=== PATIENT | female | born 1980 | race Hispanic/Latino ===

== ENCOUNTER 2018-08-31 18:47 | Emergency (ER) | payer OTHER ==
[~2018-08-31] VITALS: Ht 157.5 cm; Wt 79.5 kg
[~2018-08-31 18:47] MED LIST: AMOXICILLIN500 MG OR; AMOXIL500 MG OR; AMPICILLIN500 MG PO; CEPH500C57 OR; CLARITHROMYC500 M2 PO; CLARITIN10 MG OR; DENIES CURRENT MEDS; DONNATA2 PO; EQ OMEPRAZOLE20 MG PO; FLEXERIL OR; FOLIC ACID1 MG OR; MACRODANTIN100 MG OR; NITROFURANTN100 MG OR; NO HOME MEDS; NO MEDS; PERCOCET1 TA2 OR; PRE NATAL VIT; PRENATA4 OR; TYLENOL500 MG OR; ULTRAM50 M1 PO; ULTRAM50 MG OR
[2018-08-31 19:23] LABS: HEMATOCRIT 38.3 % (37.0-47.0); HEMOGLOBIN 13.1 g/dl (12.0-16.0); IMMATURE GRANULOCYTES 0.3 % (0.0-5.0); MEAN CELL VOLUME 89.5 fL CALC (80.0-100.0); MEAN CORPUSCULAR HGB 30.6 pG CALC (26.0-32.0); MEAN CORPUSCULAR HGB CONC 34.2 g/L CALC (32.0-36.0); NEUT# 6.76 thou/uL (2.00-7.15); RED BLOOD COUNT 4.28 mill/uL (4.20-5.60); RED CELL DISTRI WIDTH 13.5 % (11.5-15.5)
[2018-08-31 19:45] LABS: ALBUMIN 4.4 g/dL (3.2-5.0); ALKALINE PHOSPHATASE 48 u/l (38-126); ANION GAP 14 (6-22 (CALC)); BILIRUBIN, TOTAL 0.3 mg/dL (0.0-1.4); BUN 10 mg/dL (7-17); BUN/CREATININE RATIO 18 (12-20 (CALC)); CARBON DIOXIDE 27 mmol/l (22-30); CHLORIDE 103 mmol/l (95-108); CPK 54 u/l (30-165); CREATININE 0.6 mg/dL (0.5-1.0); GFR > 60 ML/MIN (>=60 (CALC)); GFR FOR AFR.AMER. > 60 ML/MIN (>=60 (CALC)); LIPASE 95 u/l (23-300); POTASSIUM 3.7 mmol/l (3.5-5.1); SGOT/AST 24 u/l (14-36); SODIUM 140 mmol/l (137-146); TOTAL PROTEIN 7.8 g/dL (6.3-8.2)
[2018-08-31 20:13] LABS: URINE BILIRUBIN - DIPSTICK NEGATIVE (NEGATIVE); URINE BLOOD DIPSTICK MODERATE (NEGATIVE); URINE COLOR YELLOW; URINE GLUCOSE - DIPSTICK NEGATIVE (NEGATIVE); URINE KETONE NEGATIVE (NEGATIVE); URINE NITRITE - DIPSTICK NEGATIVE (Negative); URINE PROTEIN - DIPSTICK NEGATIVE (NEG-TRACE); URINE SPECIFIC GRAVITY 1.025; URINE UROBILINOGEN - DIPSTICK 0.2 E.U./dL (0.2)
[2018-08-31 20:16] LABS: URINE CLARITY SL CLOUDY; URINE LEUK ESTERASE MODERATE (NEGATIVE)
[2018-08-31 20:20] LABS: URINE BACTERIA FEW hpf; URINE SQUAMOUS EPITHELIAL CELL MODERATE EPI/hpf (0-FEW)
[2018-08-31] MEDS ORDERED: ULTRAM50 M1 PO (21:22)
[2018-08-31] MEDS ORDERED: CIPROFLOXACN500 MG PO (21:22)
[2018-08-31 21:55] VITALS: BP 120/78
== END 2018-08-31 21:55 | disposition home or self-care (01) | DRG 552 ==
LOC: ED 18:47
PROVIDERS: Family Medicine
DX: S16.1XXA Strain of muscle, fascia and tendon at neck level, initial encounter (principal); S39.012A Strain of muscle, fascia and tendon of lower back, initial encounter; S29.012A Strain of muscle and tendon of back wall of thorax, initial encounter; R10.13 Epigastric pain; F17.210 Nicotine dependence, cigarettes, uncomplicated; V49.40XA Driver injured in collision with unspecified motor vehicles in traffic accident, initial encounter
CPT/HCPCS: Q9967

== ENCOUNTER 2019-07-21 21:46 | Observation (INO) | payer SELFPAY ==
[~2019-07-21] VITALS: Ht 157.5 cm; Wt 78.9 kg
[~2019-07-21 21:46] MED LIST changes: +CIPROFLOXACN500 MG PO
--- NOTE | 2019-07-21 21:53 | NUR ---
BY WC TO ROOM VERY MINIMAL EFFORT TO ASSIST TO BED
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
--- NOTE | 2019-07-21 22:03 | NUR ---
PT TO CT VIA STRETCHER. PT CRYING/LYING STILL/HYSTERICAL RESPIRATIONS/RR 32. PT RESPONDING TO QUESTIONS. MINIMAL MOVEMENT. C/O HEAD AND NECK PAIN X 4 DAYS. PASSED OUT AT HOME. ENCOURAGED TO SLOW HER BREATHING.
--- NOTE | 2019-07-21 22:17 | NUR ---
TOWEL OVER HEAD TO COMFORT PT FROM LIGHT. IV STARTED AFTER CT OF HEAD COMPLETED WHILE WAITING. LABS DRAWN. I-STAT COMPLETED. CREATININE 0.7.
--- NOTE | 2019-07-21 22:20 | NUR ---
NIHSS COMPLETED. C/O WEAKNESS AND TINGLING IN ARMS AND LEGS. BILAT LEGS DRIFTING. PT CONTINUES TO SOB AND WILL NOT ATTEMPT TO SLOW BREATHING. NRB VENTED MASK APPLIED TO ATTEMPT TO SLOW BREATHING. PORTABLE SAT ON FINGER. SAT AT 99%.
[2019-07-21 22:25] LABS: GFR > 60 ML/MIN (>=60 (CALC)); GFR FOR AFR.AMER. > 60 ML/MIN (>=60 (CALC))
[2019-07-21 22:26] LABS: HEMATOCRIT 39.4 % (37.0-47.0); HEMOGLOBIN 13.2 g/dl (12.0-16.0); IMMATURE GRANULOCYTES 0.3 % (0.0-5.0); MEAN CELL VOLUME 87.8 fL CALC (80.0-100.0); MEAN CORPUSCULAR HGB 29.4 pG CALC (26.0-32.0); MEAN CORPUSCULAR HGB CONC 33.5 g/L CALC (32.0-36.0); NEUT# 6.31 thou/uL (2.00-7.15); RED BLOOD COUNT 4.49 mill/uL (4.20-5.60); RED CELL DISTRI WIDTH 13.1 % (11.5-15.5)
[2019-07-21 22:44] LABS: ALKALINE PHOSPHATASE 55 u/l (38-126); ANION GAP 16 (6-22 (CALC)); BUN 14 mg/dL (7-17); BUN/CREATININE RATIO 20 (12-20 (CALC)); CARBON DIOXIDE 24 mmol/l (22-30); CHLORIDE 102 mmol/l (95-108); CREATININE 0.7 mg/dL (0.5-1.0); ETHYL ALCOHOL 0 mg/dl (0-30); GFR > 60 ML/MIN (>=60 (CALC)); GFR FOR AFR.AMER. > 60 ML/MIN (>=60 (CALC)); POTASSIUM 3.9 mmol/l (3.5-5.1); SGOT/AST 42 u/l (14-36); SODIUM 138 mmol/l (137-146); TOTAL PROTEIN 8.9 g/dL (6.3-8.2)
--- NOTE | 2019-07-21 22:45 | NUR ---
RETURNED TO ER. TELESTROKE NIHSS COMPLETED WITH NEURO. DOES NOT FEEL PT IS HAVING A STROKE. PT CONTINUES TO BREATHE AT A RATE OF 30-35.
[2019-07-21 22:47] LABS: ACT PARTIAL THROMBO TIME 26.9 SECONDS (20.0-32.5); INTERNATIONAL NORMALIZED RATIO 0.9 RATIO (0.7-1.3); PROTHROMBIN TIME 9.7 SECONDS (9.0-12.5)
--- NOTE | 2019-07-21 22:50 | NUR ---
TORADOL AND IVF UP.
[2019-07-21 22:56] LABS: BILIRUBIN, TOTAL 0.5 mg/dL (0.0-1.4)
--- NOTE | 2019-07-21 23:00 | NUR ---
ATTEMPTED TO CALM PT. ICE PACK TO NECK AND HEAD. HOB REMAINS ELEVATED. LIGHTS DIMMED AND BLANKET GIVEN. DOOR CLOSED. MONITORS CONTINUED.
--- NOTE | 2019-07-21 23:29 | NUR ---
NO RELIEF FROM TORADOL. BENADRYL AND REGLAN GIVEN.
--- NOTE | 2019-07-21 23:29 | NUR ---
CONTINUE WITH HYSTERICAL RESP. FAMILY AT BEDSIDE.
--- NOTE | 2019-07-21 23:46 | NUR ---
PT SLEEPING. VSS.
[2019-07-22] VITALS (9 sets, daily range): BP systolic 106–146; BP diastolic 68–96
--- NOTE | 2019-07-22 00:41 | NUR ---
EKG WAS COMPLETED AND PT UP TO BR WITH ASSIST. FEELS A LITTLE WOBBLY. ASSISTED BACK TO BED. URINE SENT.
[2019-07-22 00:58] LABS: URINE BILIRUBIN - DIPSTICK NEGATIVE (NEGATIVE); URINE BLOOD DIPSTICK SMALL (NEGATIVE); URINE COLOR YELLOW; URINE GLUCOSE - DIPSTICK NEGATIVE (NEGATIVE); URINE KETONE TRACE mg/dL (NEGATIVE); URINE LEUK ESTERASE NEGATIVE (NEGATIVE); URINE NITRITE - DIPSTICK NEGATIVE (Negative); URINE PH 6.5 (4.5-8.0); URINE PROTEIN - DIPSTICK NEGATIVE (NEG-TRACE); URINE SPECIFIC GRAVITY <=1.005; URINE UROBILINOGEN - DIPSTICK 0.2 E.U./dL (0.2)
[2019-07-22 01:21] LABS: URINE SQUAMOUS EPITHELIAL CELL FEW EPI/hpf (0-FEW)
[2019-07-22 01:22] LABS: BARBITURATES NEGATIVE (NEGATIVE); COCAINE NEGATIVE (NEGATIVE); METHADONE NEGATIVE (NEGATIVE); OXCYCODONE NEGATIVE (NEGATIVE); TETRAHYDROCANNABIONOL NEGATIVE (NEGATIVE); TRICYLIC ANTIDEPRESSANTS NEGATIVE (NEGATIVE)
--- NOTE | 2019-07-22 01:30 | NUR ---
PT SLEEPING. BREATHING CALMED. VSS.
--- NOTE | 2019-07-22 01:51 | NUR ---
REPORT TO OMAR ON MED-SURG.
--- NOTE | 2019-07-22 02:00 | NUR ---
TO FLOOR VIA STRETCHER. AMBULATORY TO SCALE AND THEN TO BED. C/O DIZZINESS. PT REMAINED NPO.
--- NOTE | 2019-07-22 02:00 | NUR ---
NO OTHER CHANGE IN NEURO STATUS.
--- NOTE | 2019-07-22 02:15 | NUR ---
PT ARRIVED TO FLOOR VIA STRETCHER ACCOMPAINED BY ER STAFF. PT ORIENTED X3 BUT DROWSY. PT C/O PAIN IN NECK AND HEAD. WILL MEDICATED WHEN AVAILABLE. PT AMBULATED FROM STRETCHER TO BED X1 PERSON ASSIST WITH STEADY GAIT. NO APPARENT RESPIRATORY DISTRESS NOTED. PT ORIENTED TO ROOM AND CALL LIGHT SYSTEM. DISCUSSED POC. PT VERBALIZED UNDERSTANDING. CALL LIGHT WITHIN REACH. WILL CONTINUE TO MONITOR.
--- NOTE | 2019-07-22 02:47 | NUR ---
INITIAL TELEMETRY READING SR 92. PT ASSISTED UP TO BSC. PT VOIDED 350ML CLEAR YELLOW URINE. ASSISTED BACK TO BED. MEDICATED WITH PRN MOTRIN. ICE PACK PROVIDED. CALL LIGHT WITHIN REACH. WILL CONTINUE TO MONITOR.
--- NOTE | 2019-07-22 04:50 | NUR ---
PT RESTING IN BED. NO APPARENT RESPIRATORY DISTRESS NOTED. PT STATES PAIN A LITTLE BETTER. DENIES ANY CURRENT WANTS OR NEEDS. CALL LIGHT WITHIN REACH. WILL CONTINUE TO MONITOR.
--- NOTE | 2019-07-22 06:55 | NUR ---
PT REPORT RECIEVED FROM JR NELSON. PT SLEEPING. NO S/S OF DISTRESS. CALL LIGHT IN REACH. WILL CONTINUE TO MONITOR.
--- NOTE | 2019-07-22 07:17 | NUR ---
PT A/O X3. RESP EVEN AND UNLABORED. LUNG SOUNDS CLEAR. TELE IN PLACE. BOWEL SOUNDS ACTIVE X4. STRONG RADIAL AND PEDAL PULSES. #20 [address]AC SL. FLUSHED AND PATENT. SITE APPEARS HEALTHY. SKIN INTACT. PT DENIES ANY PAIN OR NEEDS. POC DISCUSSED. SAFETY PRECAUTIONS IN PLACE. CALL LIGHT IN REACH. WILL CONTINUE TO MONITOR.
--- NOTE | 2019-07-22 11:34 | NUR ---
PT IS HAVING SOME HEAD/NECK PAIN BUT IMPROVING. ICE PACK PROVIDED TO POSTERIOR NECK FOR COMFORT. PT RESTING. NO FURTHER NEEDS VERBALIZED. CALL LIGHT IN REACH. WILL CONTINUE TO MONITOR.
--- NOTE | 2019-07-22 16:30 | NUR ---
Patient is seen for evaluation. She had no problems with swallowing, no difficulty with movement other than pacing - she was slow and careful but had no ROM deficit
--- NOTE | 2019-07-22 16:55 | NUR ---
PT SLEEPING. NO C/O PAIN OR NEEDS. CALL LIGHT IN REACH. WILL CONTINUE TO MONITOR.
--- NOTE | 2019-07-22 19:40 | NUR ---
PT ASSESSED, V/S OBTAINED. PT HAS FAMILY X6 AT BEDSIDE. DENIES ANY NEEDS AT THIS TIME. PT IS IN HIGH FOWLERS IN BED W/ICEPACK TO BACK OF NECK. INSTRUCTED PT TO CALL IF SHE NEEDS TO AMBULATE OR ANY OTHER NEEDS ARISE.
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
[2019-07-23] VITALS (8 sets, daily range): BP systolic 130–157; BP diastolic 80–105
--- NOTE | 2019-07-23 00:05 | NUR ---
V/S ASSESSED AT THIS TIME AND PT ASSISTED TO BSC AND BACK TO BED. PT C/O HEADACHE 12/05 AND ASKED FOR ADDITIONAL ICEPACK/PROVIDED ALONG W/WARMPACKS FOR COMFORT. ICEWATER PROVIDED, DENIES ANY OTHER NEEDS AT THIS TIME. CALL LIGHT AT SIDE W/IN REACH AND PT ENCOURAGED TO CALL.
--- NOTE | 2019-07-23 03:15 | NUR ---
PT SLEEPING, NO S/O DISTRESS NOTED. CALL LIGHT AT SIDE.
--- NOTE | 2019-07-23 04:55 | NUR ---
V/S OBTAINED, PT ASSISTED TO RESTROOM AND BACK TO BED. DENIES ANY NEEDS AT THIS TIME.
[2019-07-23 06:10] LABS: CHOLESTEROL HDL RATIO 5.6 (<4.4 (CALC))
--- NOTE | 2019-07-23 08:30 | NUR ---
ASSESSMENT DONE. PT IS A&O X3. PT STATED SHE HAS A HEADACHE 03/07 BUT REFUSED PAIN MEDICATION. ICE PACK PROVIDED FOR NECK PER PT REQUEST. RESPS EVEN AND UNLABORED. TELE IN PLACE. PT STATED SHE WANTS TO TAKE A SHOWER LATER AND WALK IN THE HALLWAY. CALL LIGHT IN REACH.
--- NOTE | 2019-07-23 11:05 | NUR ---
PT AMBULATING IN THE HALLWAY WITH A SLOW AND STEADY USING A WALKER. USER SUPPORT ANALYST AT SIDE. PT STATED SHE FEELS LITTLE DIZZY BUT IS LESS THAN BEFORE.
[2019-07-23] MEDS ORDERED: IBUPROFEN600 MG PO (13:32)
[2019-07-23] MEDS ORDERED: FLEXERIL5 M1 PO (13:32)
--- NOTE | 2019-07-23 15:14 | NUR ---
PT STATED SHE HAD A BM YESTERDAY. Discharge instructions given. Patient verbalizes understanding of same. Discharged in stable condition via Wheelchair to Home with family. All belongings sent with pt.
== END 2019-07-23 15:14 | disposition home or self-care (01) | DRG 103 ==
LOC: ED 21:46 → ED-I 07-22 01:22 → ED 07-22 01:42 → MS2 07-22 01:43
PROVIDERS: ADMIT Internal Medicine; ATTEND Internal Medicine
DX: R51 Headache (principal); R55 Syncope and collapse; G89.29 Other chronic pain; M54.5 Low back pain
CPT/HCPCS: G0378; Q9967

== ENCOUNTER 2022-04-06 16:34 | Emergency (ER) | payer SELFPAY ==
[~2022-04-06] VITALS: Ht 157.5 cm; Wt 86.3 kg
[~2022-04-06 16:34] MED LIST changes: +FLEXERIL5 M1 PO; +IBUPROFEN600 MG PO
[2022-04-06 20:18] VITALS: BP 158/98
== END 2022-04-06 20:35 | disposition home or self-care (01) | DRG 605 ==
LOC: ED 16:34
PROC: 0HQHXZZ Repair Right Upper Leg Skin, External Approach (ICD-10-PCS; principal; 2022-04-06)
DX: S71.151A Open bite, right thigh, initial encounter (principal); I10 Essential (primary) hypertension; W54.0XXA Bitten by dog, initial encounter; Y92.410 Unspecified street and highway as the place of occurrence of the external cause

== ENCOUNTER 2022-11-13 00:13 | Emergency (ER) | payer SELFPAY ==
[2022-11-13] VITALS (10 sets, daily range): BP systolic 134–174; BP diastolic 96–110
[~2022-11-13] VITALS: Ht 157.5 cm; Wt 90.0 kg
[2022-11-13 01:21] LABS: BASO% 0.6 % (0-3); HEMATOCRIT 39.3 % (37.0-47.0); HEMOGLOBIN 12.6 g/dl (12.0-16.0); IMMATURE GRANULOCYTES 0.5 % (0.0-5.0); LYMPH% 27.8 % (15-41); MEAN CELL VOLUME 85.8 fL CALC (80.0-100.0); MEAN CORPUSCULAR HGB 27.5 pG CALC (26.0-32.0); MEAN CORPUSCULAR HGB CONC 32.1 g/dL CAL (32.0-36.0); MONO% 8.1 % (2-13); NEUT# 5.32 thou/uL (2.00-7.15); RED BLOOD COUNT 4.58 mill/uL (4.20-5.60); RED CELL DISTRI WIDTH 14.2 % (11.5-15.5)
[2022-11-13 01:38] LABS: ALBUMIN 4.7 g/dL (3.2-5.0); ALKALINE PHOSPHATASE 54 u/l (38-126); ANION GAP 13 (6-22 (CALC)); BILIRUBIN, TOTAL 0.1 mg/dL (0.02-1.3); BUN 12 mg/dL (7-17); BUN/CREATININE RATIO 22 (12-20 (CALC)); CARBON DIOXIDE 26 mmol/l (22-30); CHLORIDE 101 mmol/l (95-108); CREATININE 0.5 mg/dL (0.5-1.0); GFR FOR AFR.AMER. > 60 ML/MIN (>=60 (CALC)); GFR OTHER RACES > 60 ML/MIN (>=60 (CALC)); POTASSIUM 3.8 mmol/l (3.5-5.1); SGOT/AST 38 u/l (14-36); SODIUM 136 mmol/l (137-146); TOTAL PROTEIN 8.5 g/dL (6.3-8.2)
[2022-11-13] MEDS ORDERED: NORVASC PO (02:09)
[2022-11-13] MEDS ORDERED: NAPROXEN500 MG PO (02:09)
== END 2022-11-13 02:32 | disposition home or self-care (01) | DRG 103 ==
LOC: ED 00:13
PROVIDERS: Emergency Medicine
DX: R51.9 Headache, unspecified (principal); I10 Essential (primary) hypertension

== ENCOUNTER 2023-05-28 20:17 | Emergency (ER) | payer SELFPAY ==
[2023-05-28] VITALS (10 sets, daily range): BP systolic 127–149; BP diastolic 80–94
[~2023-05-28] VITALS: Ht 157.5 cm; Wt 83.9 kg
[~2023-05-28 20:17] MED LIST changes: +NAPROXEN500 MG PO; +NORVASC PO
[2023-05-28 21:00] LABS: BASO% 0.4 % (0-3); EOS% 0.1 % (0-8); HEMATOCRIT 35.7 % (37.0-47.0); HEMOGLOBIN 11.7 g/dl (12.0-16.0); IMMATURE GRANULOCYTES 0.2 % (0.0-5.0); LYMPH% 12.9 % (15-41); MEAN CELL VOLUME 81.9 fL CALC (80.0-100.0); MEAN CORPUSCULAR HGB 26.8 pG CALC (26.0-32.0); MEAN CORPUSCULAR HGB CONC 32.8 g/dL CAL (32.0-36.0); MONO% 8.4 % (2-13); NEUT# 8.2 thou/uL (2.00-7.15); RED BLOOD COUNT 4.36 mill/uL (4.20-5.60); RED CELL DISTRI WIDTH 14.5 % (11.5-15.5)
[2023-05-28 21:15] LABS: ALBUMIN 4.6 g/dL (3.2-5.0); ALKALINE PHOSPHATASE 55 u/l (38-126); BUN 12 mg/dL (7-17); BUN/CREATININE RATIO 13 (12-20 (CALC)); CHLORIDE 104 mmol/l (95-108); GFR FOR AFR.AMER. > 60 ML/MIN (>=60 (CALC)); GFR OTHER RACES > 60 ML/MIN (>=60 (CALC)); POTASSIUM 3.1 mmol/l (3.5-5.1); SGOT/AST 33 u/l (14-36); SODIUM 137 mmol/l (137-146); TOTAL PROTEIN 8.4 g/dL (6.3-8.2)
[2023-05-28 21:20] LABS: ANION GAP 17 (6-22 (CALC)); BILIRUBIN, TOTAL 0.9 mg/dL (0.02-1.3); CARBON DIOXIDE 19 mmol/l (22-30)
[2023-05-28 21:32] LABS: URINE BILIRUBIN - DIPSTICK Negative (NEGATIVE); URINE BLOOD DIPSTICK Moderate (NEGATIVE); URINE GLUCOSE - DIPSTICK Negative (NEGATIVE); URINE KETONE >=160 mg/dL (NEGATIVE); URINE NITRITE - DIPSTICK Negative (Negative); URINE PH 6.5 (4.5-8.0); URINE PROTEIN - DIPSTICK Trace mg/dL (NEG-TRACE); URINE SPECIFIC GRAVITY 1.015
[2023-05-28 21:33] LABS: URINE COLOR Yellow; URINE LEUK ESTERASE Small (NEGATIVE)
[2023-05-28 21:41] LABS: URINE BACTERIA RARE hpf; URINE SQUAMOUS EPITHELIAL CELL MODERATE EPI/hpf (0-FEW)
[2023-05-28] MEDS ORDERED: CEPHALEXIN500 MG PO (21:49)
== END 2023-05-28 23:12 | disposition home or self-care (01) | DRG 313 ==
LOC: ED 20:17
PROVIDERS: Emergency Medicine
DX: R07.89 Other chest pain (principal); N39.0 Urinary tract infection, site not specified; I10 Essential (primary) hypertension